=== PATIENT | male | born 1965 | race Caucasian/White ===

== ENCOUNTER 2024-09-08 07:49 | Outpatient (CLI) | payer OTHER, SELFPAY ==
--- NOTE | 2024-09-08 08:45 | MR_ITS ---
WS: [id number] MRI LEFT SHOULDER NONCONTRAST TECHNIQUE: Sagittal T2, coronal T1, T2 and proton density imaging. Axial gradient PDE imaging. CLINICAL INFORMATION: S46.912A - Strain of unspecified muscle, fascia and tendo... COMPARISON: None. FINDINGS: Moderate degenerative arthritis at the AC joint with fluid and edema. Slight downsloping acromion wit h subacromial spurring. Impingement on the distal supraspinatus. Small insertional tear distal supras pinatus. Tendinopathy supraspinatus. Infraspinatus appears intact. Biceps labral anchor appears intact. Tendinopathy intra-articular bicep s tendon. Normal teres minor. Tendinopathy with partial intrasubstance tear involving the subscapular is. Biceps tendon appears intact in the bicipital groove. Small joint effusion. Degenerative fraying glenoid labrum. Moderate degenerative narrowing glenohumeral articulation. MR/MR shoulder LT wo con* [id number] IMPRESSION: 1. Moderate degenerative arthritis AC joint with fluid and edema. Slight subac romial spurring with impingement distal supraspinatus. 2. Tendinopathy distal supraspinatus with small insertional tear. No tendon re traction. 3. Tendinopathy intra-articular biceps tendon. 4. Biceps tendon appears intact within the bicipital groove. 5. Tendinopathy with partial intrasubstance tear subscapularis tendon.
== END 2024-09-08 07:50 | disposition home or self-care (01) ==
PROVIDERS: Visit Provider Nurse Practitioner
DX: M19.012 Primary osteoarthritis, left shoulder (principal); M75.92 Shoulder lesion, unspecified, left shoulder; S46.012A Strain of muscle(s) and tendon(s) of the rotator cuff of left shoulder, initial encounter; X58.XXXA Exposure to other specified factors, initial encounter
CPT/HCPCS: 73221

== ENCOUNTER → 2024-10-20 08:49 | Outpatient (BNVA) | payer OTHER, SELFPAY | PROVIDERS: PCP Nurse Practitioner; Visit Provider Specialist | DX: M19.012 Primary osteoarthritis, left shoulder; M67.912 Unspecified disorder of synovium and tendon, left shoulder | CPT/HCPCS: 73030 ==

== ENCOUNTER → 2024-11-20 10:30 | Outpatient (BNVA) | payer OTHER, SELFPAY | PROVIDERS: PCP Nurse Practitioner; Visit Provider Orthopaedic Surgery | DX: M54.2 Cervicalgia (principal) | CPT/HCPCS: 72050 ==

== ENCOUNTER 2024-12-08 09:05 | Outpatient (CLI) | payer OTHER, SELFPAY ==
--- NOTE | 2024-12-08 09:30 | MR_ITS ---
WS: [id number] MRI CERVICAL SPINE NONCONTRAST HISTORY: Neck Pain COMPARISON: None available. Technique: Multiplanar, multisequence noncontrast imaging of the cervical spine. Normal cervical alignment with no compression fracture or significant disc space narrowing. Signal within the cervical cord is normal. Visualized posterior fossa is unremarkable. Craniocervical junction, C1 and C2 relationship, odontoid process and soft tissues are normal. C2-C3: Small central disc protrusion and facet arthritis. C3-C4: Small central disc protrusion and mild facet arthritis. C4-C5: Mild osteophytic ridging. Edema surrounding the RIGHT facet joint. C5-C6: Mild osteophytic ridging. Mild bilateral facet arthritis. C6-C7: Mild osteophytic ridging and facet arthritis. C7-T1: Normal. Paraspinal soft tissue are normal. MR/MR cervical spin wo con* [id number] IMPRESSION: 1. No high-grade central or foraminal stenosis. 2. Mild multilevel facet joint arthritis. Mild acute synovitis RIGHT facet mercedez nt at C4-5. 3. Small central disc protrusions at C2-3 and C3-4.
== END 2024-12-08 09:06 | disposition home or self-care (01) ==
PROVIDERS: PCP Nurse Practitioner; Visit Provider Orthopaedic Surgery
DX: M50.21 Other cervical disc displacement, high cervical region (principal); M65.88 Other synovitis and tenosynovitis, other site; M47.892 Other spondylosis, cervical region; M25.78 Osteophyte, vertebrae
CPT/HCPCS: 72141

== ENCOUNTER 2025-08-17 12:49 | Emergency (ER) | payer OTHER, SELFPAY ==
[2025-08-17 13:16] VITALS: BP 150/82; PULSE 78; RESP 18; TEMP 36.8; O2SAT 96
--- NOTE | 2025-08-17 13:25 | W.ED.GENADLT ---
HPI - General Adult General: Chief complaint: General Medical Stated complaint: Lower R side sharp back pain Time Seen by Provider: 08/17/25 13:25 History of Present Illness: 59-year-old man with a history of osteoarthritis, hypertension, diabetes and a unilateral kidney who presents to the emergency room with flank pain. He says he was told that he had a solitary small stone in his kidney a couple of years ago and is afraid that this may have moved. No nausea or vomiting. No dysuria. It hurts with movement. No saddle numbness, no fecal or urinary retention or incontinence, no focal motor deficit, no sensory deficit. Related Data Home Medications ?Medication ?Instructions ?Recorded ?Confirmed amlodipine 5 mg tablet 5 mg PO DAILY 08/01/24 07/20/25 atorvastatin 20 mg tablet 20 mg PO DAILY 08/01/24 07/20/25 dapagliflozin propanediol 10 mg 10 mg PO DAILY 08/01/24 07/20/25 tablet (Farxiga) insulin glargine U-300 conc 300 30 unit SUBCUT DAILY 08/01/24 07/20/25 unit/mL (3 mL) subcutaneous pen metformin 500 mg tablet 500 mg PO BID 08/01/24 07/20/25 naproxen sodium 220 mg tablet 220 mg PO BID PRN 08/01/24 07/20/25 (Flanax (naproxen)) Previous Rx's ?Medication ?Instructions ?Recorded cyclobenzaprine 5 mg tablet 5 mg PO TID PRN muscle spasm #90 05/27/25 tabs gabapentin 300 mg capsule 300 mg PO TID #90 caps 07/20/25 cyclobenzaprine 10 mg tablet 10 mg PO Q8H PRN muscle spasm #20 08/17/25 tabs hydrocodone 5 mg-acetaminophen 325 1 tab PO Q8H PRN pain #14 tabs 08/17/25 mg tablet Allergies Allergy/AdvReac Type Severity Reaction Status Date / Time adhesive tape Allergy Intermediate ALGY-Bliste Verified 07/20/25 10:03 r latex Allergy ALGY-Hives Verified 07/20/25 10:03 Sulfa (Sulfonamide Allergy ALGY-Hives Verified 07/20/25 10:03 Antibiotics) Review of Systems Narrative: Constitutional symptoms: Negative except as documented in HPI. Skin symptoms: Negative except as documented in HPI. Eye symptoms: Negative except as documented in HPI. ENMT symptoms: Negative except as documented in HPI. Respiratory symptoms: Negative except as documented in HPI. Cardiovascular symptoms: Negative except as documented in HPI. Gastrointestinal symptoms: Negative except as documented in HPI. Genitourinary symptoms: Negative except as documented in HPI. Musculoskeletal symptoms: Negative except as documented in HPI. Neurologic symptoms: Negative except as documented in HPI. Psychiatric symptoms: Negative except as documented in HPI. Endocrine symptoms: Negative except as documented in HPI. PFSH ED PFSH: Family History Mother Cancer Diabetes Sister Cancer Diabetes Stroke Thyroid disease Brother Cancer Diabetes Father Diabetes Denies family history of Heart disease Chronic kidney disease (CKD) Social History Smoking and tobacco/nicotine status: current every day tobacco/nicotine user Physical Exam Narrative: EXAM NARRATIVE: General: Alert, no acute distress. Skin: Warm, dry. Head: Normocephalic, atraumatic. Neck: Supple, trachea midline. Eye: Extraocular movements are intact. Ears, nose, mouth and throat: mucosa moist. Cardiovascular: Regular, Normal peripheral perfusion. Respiratory: Lungs are clear to auscultation, respirations are non-labored, breath sounds are equal, Symmetrical chest wall expansion. Gastrointestinal: Soft, Nontender, Non distended Musculoskeletal: Normal ROM, no deformity. Neurological: Alert and oriented, No focal neurological deficit observed. Psychiatric: Cooperative, appropriate mood & affect. Course Vital Signs: Vital signs: Vital Signs Temperature 98.2 F 08/17/25 13:16 Pulse Rate 69 08/17/25 15:10 Respiratory Rate 16 08/17/25 15:10 Blood Pressure 130/79 08/17/25 15:10 Pulse Oximetry 97 08/17/25 15:10 Oxygen Delivery Me thod Room Air 08/17/25 15:00 MDM - General Adult Medical Decision Making Medical decision making: Differential diagnosis including but not limited to and based on the above HPI, review of systems and physical exam: In this patient with flank pain would have concern for: Ureterolithiasis. Urinary tract infection. Appendicitis. Cholecystitis. Musculoskeletal / back pain. Pyelonephritis. Orders placed to evaluate differential diagnosis based on the above differential, HPI and physical exam Lab Review: Laboratory results were reviewed and interpreted by myself the emergency room physician. Mild leukocytosis with a white count of 15. No anemia. No renal failure. Urinalysis is negative for infection. CT of the abdomen pelvis: Calculus in the lower calyx measuring 7.7 mm. No evidence of obstruction. No inflammatory stranding or edema about the kidney. Left nephrectomy. This was reviewed and interpreted by myself the emergency room physician. I also reviewed the radiology report. I reviewed the patient's medical record. Reexamination: Patient remained stable. No increased work of breathing. No altered mental status. No focal motor deficits. Assessment and plan: Flank pain Nephrolithiasis - Discharged home - Discussed plan with patient. Answered any questions. - Evaluation and treatment of this problem were appropriate in the emergency setting. Lab Data 08/17/25 13:36 08/17/25 13:36 Radiology Impressions Abdomen/Pelvis CT 08/17/25 13:26 IMPRESSION: 1. RIGHT renal calculus in a lower calyx measuring 7.7 mm. No evidence of acute obstruction. RIGHT ureter is decompressed. No inflammatory stranding or edema about the RIGHT kidney. 2. Prior LEFT nephrectomy 3. Prior cholecystectomy 4. Small esophageal hiatal hernia Laboratory Results WBC 15.33 10^3/uL (3.29-11.43) H 08/17/25 13:36 RBC 5.79 10^6/uL (3.85-5.65) H 08/17/25 13:36 Hgb 17.10 g/dL (11.27-16.99) H 08/17/25 13:36 Hct 53.0 % (37-53) 08/17/25 13:36 MCV 91.5 fl (82-101) 08/17/25 13:36 MCH 29.5 pg (27-33) 08/17/25 13:36 MCHC 32.3 g/dL (30-55) 08/17/25 13:36 RDW 14.4 % (12.1-15.1) 08/17/25 13:36 Plt Count 217 10^3/cmm (157-399) 08/17/25 13:36 MPV 10.0 fL (7.4-10.4) 08/17/25 13:36 Neut % (Auto) 71.1 % 08/17/25 13:36 Lymph % (Auto) 18.5 % 08/17/25 13:36 [place] % (Auto) 7.8 % 08/17/25 13:36 Eos % (Auto) 0.8 % 08/17/25 13:36 Baso % (Auto) 0.7 % 08/17/25 13:36 Neut # (Auto) 10.89 10^3/uL (1.8-7.7) H 08/17/25 13:36 Lymph # (Auto) 2.8 10^3/uL (0.8-4.8) 08/17/25 13:36 [place] # (Auto) 1.2 10^3/uL (0.2-0.9) H 08/17/25 13:36 Eos # (Auto) 0.1 10^3/uL (0.0-0.8) 08/17/25 13:36 Baso # (Auto) 0.1 10^3/uL (0.0-0.1) 08/17/25 13:36 Nucleated RBC % (auto) 0 % 08/17/25 13:36 Nucleated RBCs # 0.0 /100WBC 08/17/25 13:36 Sodium 138 mmol/L (136-145) 08/17/25 13:36 Potassium 4.7 mmol/L (3.5-5.1) 08/17/25 13:36 Chloride 101 mmol/L (98-107) 08/17/25 13:36 Carbon Dioxide 23 mmol/L (22-29) 08/17/25 13:36 Anion Gap 18.7 (5-19) 08/17/25 13:36 BUN 20 mg/dL (8-23) 08/17/25 13:36 Creatinine 1.0 mg/dL (0.7-1.2) 08/17/25 13:36 GFR Calculation 76.0 mL/min (90-130) L 08/17/25 13:36 Glucose 187 mg/dL (65-115) H 08/17/25 13:36 Calculated Osmolality 294 mOsm/kg (285-295) 08/17/25 13:36 Calcium 9.4 mg/dL (8.5-10.5) 08/17/25 13:36 Total Bilirubin 0.5 mg/dL (0.15-1.2) 08/17/25 13:36 AST 17 U/L (0-40) 08/17/25 13:36 ALT 13 U/L (0-41) 08/17/25 13:36 Alkaline Phosphatase 92 U/L (40-130) 08/17/25 13:36 Total Protein 7.2 g/dL (6.6-8.7) 08/17/25 13:36 Albumin 4.2 g/dL (3.5-5.2) 08/17/25 13:36 Globulin 3.0 g/dL (1.3-4.6) 08/17/25 13:36 Urine Color Yellow (Yellow) 08/17/25 13:36 Urine Appearance Clear (CLEAR) 08/17/25 13:36 Urine pH 5.5 (5-7) 08/17/25 13:36 Ur Specific [place] 1.030 (1.005-1.030) 08/17/25 13:36 Urine Protein 2+ (Negative) A 08/17/25 13:36 Urine Glucose (UA) Trace (Normal) H 08/17/25 13:36 Urine Ketones Negative (Negative) 08/17/25 13:36 Urine Blood Trace (Negative) A 08/17/25 13:36 Urine Nitrate Negative (Negative) 08/17/25 13:36 Urine Bilirubin Negative (Negative) 08/17/25 13:36 Urine Urobilinogen 0.2 mg/dL (Negative) 08/17/25 13:36 Ur Leukocyte Esterase Negative (Negative) 08/17/25 13:36 Urine RBC Rare /hpf (0-2) 08/17/25 13:36 Urine WBC None /hpf (0-5) 08/17/25 13:36 Ur Squamous Epith Cells None /hpf (0-5) 08/17/25 13:36 Amorphous Sediment Not Reportable 08/17/25 13:36 Urine Bacteria None /hpf (NONE) 08/17/25 13:36 Urine Mucus None /hpf 08/17/25 13:36 All radiology interpretation(s) finalized by discharge Discharge Plan Discharge Patient Disposition: Home Clinical Impression: Low back pain, Nephrolithiasis, Acquired solitary kidney Condition: Stable Prescriptions: New cyclobenzaprine 10 mg tablet 10 mg PO Q8H PRN (Reason: muscle spasm) Qty: 20 0RF hydrocodone-acetaminophen 5-325 mg tablet 1 tab PO Q8H PRN (Reason: pain) Qty: 14 0RF Rx Instructions: Take 1/2 to 1 tab every 8 hours as needed for pain No Action cyclobenzaprine 5 mg tablet 5 mg PO TID PRN (Reason: muscle spasm) Qty: 90 3RF metformin 500 mg tablet 500 mg PO BID atorvastatin 20 mg tablet 20 mg PO DAILY amlodipine 5 mg tablet 5 mg PO DAILY naproxen sodium [Flanax (naproxen)] 220 mg tablet 220 mg PO BID PRN dapagliflozin propanediol [Farxiga] 10 mg tablet 10 mg PO DAILY insulin glargine U-300 conc 300 unit/mL (3 mL) insulin pen 30 unit SUBCUT DAILY gabapentin 300 mg capsule 300 mg PO TID Qty: 90 0RF Discharge Orders: Discharge ED (Routine); Ordered 08/17/25 Ordered By: Susu Rodas Referrals: [facility] Pride [Referring, Urology] Referral Note: Please call for a follow-up appointment with urology as soon as possible. Either [facility] or physician of your choosing. Review having a single kidney and this stone in the kidney this needs to be evaluated by a urologist Savannah Gramajo FNP [Primary Care Provider, Nurse Practitioner] Discharge Diet: Usual diet Discharge Activity: Increase activity as tolerated Patient Instructions: Acute Low Back Pain (ED), Opioid Safety, Pain Management, Patient Portal & [facility] Instructions Activity Restrictions/Additional Instructions: Please call for a follow-up appointment with urology as soon as possible. Either [facility] or physician of your choosing. Review having a single kidney and this stone in the kidney this needs to be evaluated by a urologist Thank you for choosing [facility] for your healthcare needs today. You have been screened and evaluated and felt safe for discharge. Health conditions do change or evolve sometimes and as such it is important that you follow up with your Primary Doctor to be re checked, 3-5 days is a general good time frame for follow up. You are always welcome to return to the ED for re assessment if your symptoms are worsening or you have new concerns Print Language: Vietnamese Coding Level of Care Code ED Clerk General Office for Johnnie Rodriguez
--- NOTE | 2025-08-17 13:26 | CT_ITS ---
WS: [id number] CT ABDOMEN PELVIS TECHNIQUE: Noncontrast CT of the abdomen and pelvis with coronal and sagittal reformatted images. CLINICAL INFORMATION: flank pain COMPARISON: None. DLP: 1020.[address] scans at [facility] use at least one of these dose optimization techniques: automated exposure control; mA and/or kV adjustment per patient size (includes targeted exams where dose is matched to clinical indication); or iterative reconstruction. FINDINGS: Prior LEFT nephrectomy. Cholecystectomy clips. RIGHT renal calculus in a lower calyx measuring 7.7 mm. Mild dilatation of the RIGHT renal pelvis. RIGHT ureter is decompressed. No inflammatory stranding or edema about the RIGHT kidney. Lung bases are well aerated. Small esophageal hiatal hernia. Normal noncontrast pancreas. Normal noncontrast spleen. Splenic artery calcification. Cholecystectomy clips. Normal caliber abdominal aorta. Aortic calcification. Tiny fat-containing umbilical hernia. Sigmoid diverticulosis. No evidence of ac [place] diverticulitis. Normal appendix. No evidence of small or large bowel obstruction. CT/CT kidney stone [id number] IMPRESSION: 1. RIGHT renal calculus in a lower calyx measuring 7.7 mm. No evidence of ac [place] obstruction. RIGHT ureter is decompressed. No inflammatory stranding or jimmie ma about the RIGHT kidney. 2. Prior LEFT nephrectomy 3. Prior cholecystectomy 4. Small esophageal hiatal hernia
[2025-08-17 13:40] VITALS: BP 135/101; O2SAT 97
[2025-08-17 13:49] LABS: Glucose Urine UA Trace (Normal); Nitrate Urine Negative (Negative); Specific Gravity, Urine 1.030 (1.005-1.030)
[2025-08-17 13:53] LABS: Hematocrit 53.0 % (37-53); Hemoglobin 17.10 g/dL (11.27-16.99); Mean Corpuscular HGB Conc 32.3 g/dL (30-55); Mean Corpuscular Hemoglobin 29.5 pg (27-33); Mean Corpuscular Volume 91.5 fl (82-101); Nucleated Red Blood Cells % 0 %; Platelet Count 217 10^3/cmm (157-399); Red Blood Count 5.79 10^6/uL (3.85-5.65); White Blood Count 15.33 10^3/uL (3.29-11.43)
[2025-08-17 14:07] LABS: Alanine Aminotransferase 13 U/L (0-41); Albumin Level 4.2 g/dL (3.5-5.2); Alkaline Phosphatase 92 U/L (40-130); Aspartate Amino Transferase 17 U/L (0-40); Blood Urea Nitrogen 20 mg/dL (8-23); Calcium 9.4 mg/dL (8.5-10.5); Carbon Dioxide 23 mmol/L (22-29); Chloride 101 mmol/L (98-107); Creatinine Clr Calc Pharmacy 90.4980; Globulin 3.0 g/dL (1.3-4.6); Glucose 187 mg/dL (65-115); Osmolality Calculated 294 mOsm/kg (285-295); Sodium 138 mmol/L (136-145); Total Protein 7.2 g/dL (6.6-8.7)
[2025-08-17 14:09] LABS: Anion Gap 18.7 (5-19); Potassium 4.7 mmol/L (3.5-5.1)
[2025-08-17 15:00] VITALS: BP 130/79; O2SAT 97
[2025-08-17 15:10] VITALS: BP 130/79; PULSE 69; RESP 16; O2SAT 97
== END 2025-08-17 15:11 | disposition home or self-care (01) ==
PROVIDERS: Emergency Provider Emergency Medicine; PCP Nurse Practitioner
DX: M54.50 Low back pain, unspecified (principal); N20.0 Calculus of kidney; Z90.5 Acquired absence of kidney; Z79.84 Long term (current) use of oral hypoglycemic drugs; Z79.4 Long term (current) use of insulin; Z72.0 Tobacco use; E11.9 Type 2 diabetes mellitus without complications; I10 Essential (primary) hypertension
CPT/HCPCS: 74176; 80053; 81001; 85025; 99284